=== PATIENT | female | born 1955 | race African-American/Black ===

== ENCOUNTER 2018-09-08 19:06 | Emergency (ER) | payer OTHER ==
[~2018-09-08] VITALS: Ht 152.4 cm; Wt 72.6 kg
[2018-09-08] MEDS ORDERED: SIMVASTATIN5 MG ORAL (19:21)
[2018-09-08] MEDS ORDERED: ASPIR 8181 MG ORAL (19:21)
[2018-09-08] MEDS ORDERED: SPIRONOLACTONE100 MG ORAL (19:21)
--- NOTE | 2018-09-08 19:31 | NUR ---
ED Nurse Note: pt walked in c/o bleeding in the mouth started 5pm. pt stated it happend right after she accidently splashed her face with "multi surface cleaner and dyer". denies pain. AO4. NAD. Hypertensive; 164/81
[2018-09-08 19:33] VITALS: BP 169/81
--- NOTE | 2018-09-08 20:00 | NUR ---
ED Nurse Note: IV access established. Blood and urine sent down to lab.
--- NOTE | 2018-09-08 20:04 | Emergency Room Report ---
History of Present Illness General Chief Complaint: General Complaint Source: Patient Present Illness HPI This is a 63-year-old female who apparently was cleaning and opened up a cleaning bottle which sprayed in her face. And since that she has had episodes of spitting blood. She denies any other associated symptoms. She denies any shortness of breath. She denies any melena. She denies any hematemesis. She denies abdominal pain. She denies any other trauma. Allergies: Coded Allergies: No Known Allergies (Unverified , 09/08/18) Patient History Past Medical History: HTN Past Surgical History: none Pertinent Family History: none Last Menstrual Period: 2 decades ago Now: No : 3 Para: 3 Nursing Documentation-PMH Hx Hypertension: Yes - high cholesterol Review of Systems All Other Systems: negative except mentioned in HPI Physical Exam Vital Signs Date Time Temp Pulse Resp B/P (MAP) Pulse Ox O2 Delivery O2 Flow Rate FiO2 09/08/18 19:13 99.0 86 16 163/91 94 Room Air General Appearance: well appearing, no apparent distress Head: normocephalic, atraumatic ENT: hearing grossly normal, normal voice Neck: full range of motion, supple Respiratory: no respiratory distress, speaking full sentences Cardiovascular #1: regular rate, rhythm, no edema Gastrointestinal: normal bowel sounds, non tender, soft Musculoskeletal: no calf tenderness Neurologic: alert, oriented x3, normal gait Psychiatric: mood/affect normal Skin: no rash Medical Decision Making Diagnostic Impression: Primary Impression: Chemical exposure ER Course Patient was seen and examined. Multiple bedside evaluation was done. Initially , I considered as intestinal bleeding, peptic ulcer disease, bleeding diathesis , and also considered oral trauma. The patient has no other signs of bleeding. Her bleeding has resolved. Dentition is intact. Blood work was reviewed. The patient is hemodynamic stable. Patient is to follow-up with her primary care physician to return sooner is any change in symptoms or any new symptoms. No evidence of airway compromise. Laboratory Tests Test 09/08/18 20:15 09/08/18 21:20 Prothrombin Time 10.3 SEC (9.30-11.50) Prothrombin Time INR 1.0 (0.9-1.1) PTT 26 SEC (23-33) Sodium Level 142 MMOL/L (136-145) Potassium Level 3.8 MMOL/L (3.5-5.1) Chloride Level 104 MMOL/L (98-107) Carbon Dioxide Level 28 MMOL/L (21-32) Anion Gap 10 mmol/L (5-15) Blood Urea Nitrogen 19 mg/dL (7-18) H Creatinine 1.0 MG/DL (0.55-1.30) Estimate Glomerular Filtration Rate > 60 mL/min (>60) Glucose Level 104 MG/DL (74-106) Calcium Level 9.6 MG/DL (8.5-10.1) Total Bilirubin 0.4 MG/DL (0.2-1.0) Aspartate Amino Transferase (AST) 18 U/L (15-37) Alanine Aminotransferase (ALT) 22 U/L (12-78) Alkaline Phosphatase 111 U/L (46-116) Total Creatine Kinase 150 U/L (26-308) Total Protein 8.6 G/DL (6.4-8.2) H Albumin 4.4 G/DL (3.4-5.0) Globulin 4.2 g/dL Albumin/Globulin Ratio 1.0 (1.0-2.7) White Blood Count 5.3 K/UL (4.8-10.8) Red Blood Count 5.09 M/UL (4.20-5.40) Hemoglobin 14.0 G/DL (12.0-16.0) Hematocrit 45.1 % (37.0-47.0) Mean Corpuscular Volume 89 FL (80-99) Mean Corpuscular Hemoglobin 27.6 PG (27.0-31.0) Mean Corpuscular Hemoglobin Concent 31.1 G/DL (32.0-36.0) L Red Cell Distribution Width 12.8 % (11.6-14.8) Platelet Count 170 K/UL (150-450) Mean Platelet Volume 7.4 FL (6.5-10.1) Neutrophils (%) (Auto) 77.7 % (45.0-75.0) H Lymphocytes (%) (Auto) 16.1 % (20.0-45.0) L Monocytes (%) (Auto) 4.9 % (1.0-10.0) Eosinophils (%) (Auto) 0.3 % (0.0-3.0) Basophils (%) (Auto) 0.9 % (0.0-2.0) EKG Diagnostic Results EKG Time: 20:03 Rate: normal Rhythm: NSR ST Segments: no acute changes Last Vital Signs Date Time Temp Pulse Resp B/P (MAP) Pulse Ox O2 Delivery O2 Flow Rate FiO2 09/08/18 19:33 86 16 Room Air 09/08/18 19:33 99.0 169/81 94 Disposition: HOME, SELF-CARE Patient Instructions: Chemical Inhalation Injury MARIO SHERMAN Sep 08, 2018 20:04
[2018-09-08 20:43] LABS: ANION GAP 10 mmol/L (5-15); BLOOD UREA NITROGEN 19 mg/dL (7-18); CALCIUM 9.6 MG/DL (8.5-10.1); CARBON DIOXIDE 28 MMOL/L (21-32); CHLORIDE 104 MMOL/L (98-107); POTASSIUM 3.8 MMOL/L (3.5-5.1); SODIUM 142 MMOL/L (136-145)
[2018-09-08 20:48] LABS: ALANINE AMINOTRANSFERASE 22 U/L (12-78); ALBUMIN 4.4 G/DL (3.4-5.0); ALKALINE PHOSPHATASE 111 U/L (46-116); ASPARTATE AMINO TRANSFERASE 18 U/L (15-37); BILIRUBIN,TOTAL 0.4 MG/DL (0.2-1.0); CREATINE KINASE 150 U/L (26-308)
[2018-09-08 21:55] LABS: BASOPHILS % (AUTO) 0.9 % (0.0-2.0); EOSINOPHILS % (AUTO) 0.3 % (0.0-3.0); HEMATOCRIT 45.1 % (37.0-47.0); LYMPHOCYTES % (AUTO) 16.1 % (20.0-45.0); MEAN CORPUSCULAR VOLUME 89 FL (80-99); MONOCYTES % (AUTO) 4.9 % (1.0-10.0); NEUTROPHILS % (AUTO) 77.7 % (45.0-75.0); PLATELET COUNT 170 K/UL (150-450); RED BLOOD COUNT 5.09 M/UL (4.20-5.40); RED CELL DISTRIBUTION WIDTH 12.8 % (11.6-14.8); WHITE BLOOD COUNT 5.3 K/UL (4.8-10.8)
[2018-09-08 22:00] VITALS: BP 169/81
--- NOTE | 2018-09-08 22:00 | NUR ---
ER DISCHARGE NOTE: Patient is cleared to be discharged per ERMD, pt is aox4, on room air, with stable vital signs. pt was given dc and prescription instructions, pt was able to verbalize understanding, pt id band and iv site removed without complications. pt is able to ambulate with steady gait. pt took all belongings.
--- NOTE | 2018-09-09 11:40 | Diagnostic Imaging Report ---
Indication: Chest pain Technique: One view of the chest Comparison: none Findings: The heart is mildly enlarged. The lungs and pleural spaces are clear. The bones are intact. Impression: No definite acute process
--- NOTE | 2018-09-09 17:00 | Cardiology Report ---
APPROVED REPORT EKG Measurement Heart [id number] Normal sinus rhythm Moderate voltage criteria for LVH, may be normal variant Borderline ECG
== END 2018-09-08 22:00 | disposition home or self-care (01) ==
LOC: EMR 19:50
DX: Z77.098 Contact with and (suspected) exposure to other hazardous, chiefly nonmedicinal, chemicals (principal); I10 Essential (primary) hypertension; E78.00 Pure hypercholesterolemia, unspecified
CPT/HCPCS: 36415; 71045; 80053; 82550; 85025; 85610; 85730; 93005; 99283